=== PATIENT | female | born 1990 | race Caucasian/White ===

== ENCOUNTER 2017-03-27 22:30 | Outpatient (CLI) | payer BC, MEDICAID, SELFPAY ==
[2017-03-27 22:42] VITALS: BMI 32.8
[2017-03-27] MEDS: Betamethasone/Betamethasone 30 MG/5 ML Vial 12 MG IM (22:54)
[2017-03-27 23:05] VITALS: RESP 18
== END 2017-03-27 23:05 | disposition home or self-care (01) ==
PROVIDERS: Family Provider Obstetrics & Gynecology; PCP Obstetrics & Gynecology; Visit Provider Obstetrics & Gynecology
DX: O60.00 Preterm labor without delivery, unspecified trimester (principal)
CPT/HCPCS: 96372; 99218; G0378; J0702

== ENCOUNTER 2017-05-30 12:50 | Outpatient (CLI) | payer MEDICAID, SELFPAY ==
[2017-05-30 13:01] VITALS: BMI 34.4
[2017-05-30 13:40] LABS: Hematocrit 40.4 % (37-47); Hemoglobin 14.3 g/dl (12.0-15.0); Mean Corp Hgb Conc 35.4 g/gl (32-36); Mean Corpuscular Hgb 30.2 pg (27.0-32.0); Mean Corpuscular Volume 85.4 fL (81-99); Mean Platelet Vol. 13.1 fl (6.2-12.0); Platelet Count 199 K/mm3 (150-450); RBC Distribution Width CV 14.8 % (11.6-14.6); RBC Distribution Width SD 46.1 fl (35.1-43.9); Red Blood Count 4.73 M/mm3 (4.2-5.4); White Blood Count 13.2 K/mm3 (4.4-11.0)
[2017-05-30 13:43] LABS: Scan Indicated on CBC? Y/N NO
[2017-05-30] MEDS: 0.9% NaCl Peripheral Flush Adult/Peds IV (13:45)
[2017-05-30 13:50] LABS: Protein:Creat Ratio 739 mg/g CRE (0-200)
[2017-05-30] MEDS: Lactated Ringers 1,000 ML 100 ML IV (14:00)
[2017-05-30 14:05] LABS: International Normalized Ratio 0.9; Prothrombin Time (Protime)PT. 12.1 SECONDS (11.7-14.9)
[2017-05-30 14:06] LABS: Partial Thromboplast Time 29.9 Seconds (24.1-36.2)
[2017-05-30 14:23] LABS: AST(SGOT) 20 U/L (15-37); Alanine Aminotransfer ALT/SGPT 19 U/L (12-78); Creatinine, Serum 0.61 mg/dL (0.55-1.02); EST Glomerular Filtration Rate 124 mL/min (>60); Est Glom Filt Rate - Afr Amer 150 mL/min (>60); Estimated Creatinine Clearance 109.57 ml/min
[2017-05-30 14:52] LABS: Thyroid Stim Hormone (TSH) 0.71 uIU/mL (0.358-3.74)
[2017-05-30] MEDS: Betamethasone/Betamethasone 30 MG/5 ML Vial 12 MG IM (14:55)
[2017-05-30] MEDS: Acetaminophen 500 MG Tablet 1000 MG PO (16:12)
--- NOTE | 2017-05-30 16:16 | OB.TRI.HP_ITS ---
History of Present Illness - History of Present Illness Reason For Visit: r/o pre eclampsia - Medications Home Medications: Home Medications Medication Instructions Recorded Propylthiouracil 150 mg PO TID 01/10/17 [Propylthiouracil, PTU] Vits [Prenatabs FA] 1 tablet PO DAILY 03/26/17 - Allergies Allergies/Adverse Reactions: Allergies No Known Allergies Allergy (Verified 05/30/17 13:03) - Pertinent Past Medical History Pertinent Past Medical History: TRANSPORT NOTE This is a 26-year-old patient at 33+ weeks gestation with EDC of July 15, 2017 by a 7 week 1 day ultrasound who presents by squad with elevated blood pressures. Patient indicates her blood pressure upon squad arrival was in the 180s over 130s. Upon arrival here blood pressures were 160 over 90s. Since then her blood pressures been noted to be in the 140s over 90s. care has been remarkable for 2 prior C-sections one at 30 weeks and a second at 33 weeks. First was for rupture of membranes and second was for -induced hypertension at 33 weeks. Patient required bedrest for about 3 weeks with her last due to -induced hypertension. Patient denies any PIH symptoms except for an headache which is on and off. Patient's care is also remarkable for hyperthyroidism with treatment using PTU 3 times daily. Her first child also had a first chromosome duplication. Physical Exam General: Alert, Oriented x3, Cooperative, No apparent distress Cardiovascular: Regular rate, Regular Rhythm Abdomen: Soft, Non Tender, Non-Distended, No Hepato-splenomegaly Extremities:: No clubbing, No cyanosis, Other - DTRs 1+ no clonus Estimated gestational size: Appropriate for gestational size Cervix Dilation (cm): 0 Station: -2 Effacement (%): 50 NST - FHR Rate Baby A NST Reactive:: Yes - 2 decelerations to the 60s was noted just after arrival. Since then nonstress test has been reactive without decelerations noted. No uterine contractions are visualized on monitor. Impression/Plan Severe PIH at 33 weeks gestation. PIH labs are essentially normal except for an elevated urine protein to creatinine ratio and anuria. Uric acid levels also elevated at 7.0. River functions are normal and platelet count is normal. On examination reflexes are normal to slightly brisk. Headaches come and go. Celestone has been started. I reviewed the case with maternal medicine ( Dr. Guzmán) and will transfer to [facility]. Will start magnesium sulfate before transport.
[2017-05-30] MEDS: Magnesium Sulfate 20 GM/500 ML BAG IV (17:10)
== END 2017-05-30 18:00 | disposition home or self-care (01) ==
LOC: WPOUT 12:57 → WP 13:00
PROVIDERS: Obstetrics & Gynecology; Visit Provider Obstetrics & Gynecology
DX: O14.13 Severe pre-eclampsia, third trimester (principal); O76 Abnormality in fetal heart rate and rhythm complicating labor and delivery; O99.283 Endocrine, nutritional and metabolic diseases complicating pregnancy, third trimester; E05.90 Thyrotoxicosis, unspecified without thyrotoxic crisis or storm; O26.833 Pregnancy related renal disease, third trimester; R34 Anuria and oliguria; O09.213 Supervision of pregnancy with history of pre-term labor, third trimester; Z3A.33 33 weeks gestation of pregnancy
CPT/HCPCS: 96361 ×4; 96365; 59025; 59050; 82565; 82570; 84156; 84443; 84450; 84460; 84550; 85027; 85610; 85730; 96372; 99218; J7120; A4216; G0378; J0702

== ENCOUNTER 2017-11-30 19:30 | Emergency (ER) | payer MEDICAID, SELFPAY ==
--- NOTE | 2017-11-30 19:30 | DT_ITS ---
This patient was seen during an EMR downtime November 24, 2017 - December 01, 2017. This patient may have a combination of paper and electronic documentation or all paper documentation. All documentation is viewable within the e-chart portion of [facility] for each patient visit.
[2017-12-02 10:17] LABS: Absolute Lymphocyte Count 1.27 X10^3/ul (0.83-4.51); Absolute Neutrophil Count 4.8 X10^3/uL (2.0-7.7); Basophil% 0.2 % (0-1); Eosinophils% 1.4 % (0-5); Hematocrit 40.1 % (37-47); Hemoglobin 13.3 g/dl (12.0-15.0); Lymphocyte # 1.27 X10^3/ul (4.0); Lymphocyte % 19.2 % (19-41); Mean Corp Hgb Conc 33.2 g/gl (32-36); Mean Corpuscular Hgb 26.5 pg (27.0-32.0); Mean Platelet Vol. 10.9 fl (6.2-12.0); Monocyte# 0.42 X10^3/uL; Monocyte% 6.3 % (0-10); Neutrophil # 4.83 X10^3/uL (2.7-7.7); Neutrophil % 72.7 % (47-70); POSITIVE COUNT NO; POSITIVE DIFFERENTIAL NO; POSITIVE MORPHOLOGY NO; Platelet Count 199 K/mm3 (150-450); RBC Distribution Width CV 14.3 % (11.6-14.6); RBC Distribution Width SD 41.5 fl (35.1-43.9); Red Blood Count 5.01 M/mm3 (4.2-5.4); White Blood Count 6.6 K/mm3 (4.4-11.0)
[2017-12-02 10:18] LABS: Basophil# 0.01 X10^3/uL; Eosinophil# 0.09 X10^3/uL
[2017-12-02 11:25] LABS: Pregnancy, Serum, hCG Quali. NEGATIVE Negative (0-9 Nonpreg)
[2017-12-02 11:26] LABS: Anion Gap 8 (5-15); BUN 5 mg/dL (7-18); BUN/Creat Ratio 8.3 RATIO (10-20); Calcium,Total 8.4 mg/dL (8.5-10.1); Chloride 106 mmol/L (98-107); EST Glomerular Filtration Rate 127 mL/min (>60); Est Glom Filt Rate - Afr Amer 154 mL/min (>60); Glucose 81 mg/dL (74-106); Lipase 184 U/L (73-393); Potassium 3.5 mmol/L (3.5-5.1); Sodium Level 139 mmol/L (136-145)
[2017-12-02 11:57] LABS: AST(SGOT) 19 U/L (15-37); Alanine Aminotransfer ALT/SGPT 25 U/L (13-56); Albumin, Serum 3.7 g/dL (3.2-5.0); Alkaline Phosphatase 97 U/L (45-117); Bilirubin, Direct 0.07 mg/dL (0.00-0.30); Globulin 3.9 g/dL (2.2-4.2); Protein, Total 7.6 g/dL (6.4-8.2)
== END 2017-11-30 22:05 | disposition home or self-care (01) ==
PROVIDERS: Emergency Provider Emergency Medicine
DX: R19.7 Diarrhea, unspecified (principal); R10.9 Unspecified abdominal pain; Z87.891 Personal history of nicotine dependence
CPT/HCPCS: 80048; 80076; 83690; 84703; 85025; 87493; 96374; 96375; 99284; A4216; J2405

== ENCOUNTER → 2018-06-04 13:59 | Outpatient (CLI) | payer MEDICAID, SELFPAY ==
[2018-06-04 13:28] VITALS: BMI 36.6
[2018-06-04 16:31] LABS: Free T3 5.3 pg/mL (2.18-3.98); T4 Free Direct 1.61 ng/dL (0.76-1.46); Thyroid Stim Hormone (TSH) < 0.01 uIU/mL (0.358-3.74)
[2018-06-08 20:07] LABS: Thyroid Peroxidase AB 369 IU/mL (0-34)
[2018-06-09 10:43] LABS: Thyroglobulin Antibody 486.4 IU/mL (0.0-0.9)
--- OUTSIDE RECORDS SUMMARY | 2018-07-21 10:42 | XMS RPT_ITS ---
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 therapy completed Breast Pump Device 1 De* 0 06/02/2017 02/25/2018 Class: Print RX Sig: Use as directed Disc: Course of therapy completed oxyCODONE-acetaminophen (PERCOCET) 5* 30 t* 0 06/02/2017 02/25/2018 Class: Print RX Route: ORAL Sig: Take 1 tablet by mouth every 4 hours as needed for Pain. Disc: Course of therapy completed ibuprofen (MOTRIN) 600 mg tablet 60 t* 0 06/02/2017 02/25/2018 Class: Print RX Route: ORAL Sig: Take 1 tablet by mouth every 6 hours as needed. Disc: Course of therapy completed docusate sodium (COLACE) 100 mg caps* 60 c* 1 06/02/2017 02/25/2018 Class: Print RX Route: ORAL Sig: Take 2 capsules by mouth twice daily as needed for Constipation. Disc: Course of therapy completed Follow-up and Disposition History Recorded Encounter Status:Closed by CARLITO DRISCOLL MD on 02/25/18 DOWNTIME REPORT Observed: 12/10/2017 Status: F Source: [place] 3:01 PM [facility] REPOSITORY [facility] Medical Records Department [address] [place] [address] Downtime Report MR#: [id number] Acct: [id number] Name: NATALY BROOKE Rep #: [id number] : 1990 27 From: Manuel Vogt MD PCP: Care Physician, No Primary Status: [facility] This patient was seen during an EMR downtime November 24, 2017 - December 01, 2017. This patient may have a combination of paper and electronic documentation or all paper documentation. All documentation is viewable within the e-chart portion of [employer] for each patient visit. Observed: 11/30/2017 Status: F Source: [place] CDIFF (MOLECULAR) 7:57 PM [facility] REPOSITORY RESULT(S) PREVIOUSLY REPORTED ON MANUAL REQUISITION DURING DOWNTIME. Cdiff-Molecular Normal Reference Range = Negative C. Diff DNA Negative- No toxigenic C. Diff DNA Detected NAAT METHOD Testing was performed using nucleic acid amplification Performed By: #### M100.6796 #### [facility] [address] [place], [address] ,SERUM,HCG QUALI. Collected: Status: F Source: [place] 11/30/2017 7:45 PM [facility] REPOSITORY Order Comment: RESULT(S) PREVIOUSLY REPORTED ON MANUAL REQUISITION DURING DOWNTIME. TYPE CODE TESTS RESULT OUT OF REFERENCE UNITS RANGE LAB L700.6700 =>Qualitative mIU/mL Normal HCG Qual < 1 triggr LAB L700.7000 0-9 Nonpreg Negative Normal HCGSQUAL NEGATIVE Performed By: #### L700.6800 #### [facility] [address] [place], [place], [address] BASIC METABOLIC Collected: 11/30/2017 Status: F Source: [place] PROFILE (BMP) 7:45 PM [facility] REPOSITORY Order Comment: RESULT(S) PREVIOUSLY REPORTED ON MANUAL REQUISITION DURING DOWNTIME. TYPE CODE TESTS RESULT OUT OF RANGE REFERENCE UNITS LAB L501.0100 74-106 mg/dL Normal GLU 81 Result Comment: Please note revised GLUCOSE reference range effective 2017. LAB L501.1000 7-18 mg/dL Low BUN 5 LAB L501.1100 0.55-1.02 mg/dL Normal CREAT,SERUM 0.60 Result Comment: The validity of the calculated GFR AND GFRAA in patients over 70 years has not been determined. Clinical correlation is essential. LAB L501.1110 >60 mL/min Normal EST GFR 127 LAB L501.1115 >60 mL/min Normal EST GFR - AA 154 LAB L501.1300 10-20 RATIO Low BUN/CRE 8.3 LAB L501.2200 8.5-10.1 mg/dL Low CA 8.4 LAB L501.5300 136-145 mmol/L Normal NA 139 LAB L501.5600 3.5-5.1 mmol/L Normal K 3.5 LAB L501.5900 98-107 mmol/L Normal CL 106 LAB L501.6100 21.0-32.0 mmol/L Normal CO2 25.0 LAB L501.6200 5-15 Normal GAP 8 Performed By: #### L500.2500, L501.2450, L500.3400 #### [facility] [address] [place], [address] LIPASE Collected: 11/30/2017 Status: F Source: NED 7:45 PM [facility] REPOSITORY Order Comment: RESULT(S) PREVIOUSLY REPORTED ON MANUAL REQUISITION DURING DOWNTIME. TYPE CODE TESTS RESULT OUT OF RANGE REFERENCE UNITS LAB L501.2450 73-393 U/L Normal LIPASE 184 Performed By: #### L500.2500, L501.2450, L500.3400 #### [facility] [address] [place], [address] LIVER PROFILE Collected: 11/30/2017 Status: F Source: [place] 7:45 PM [facility] REPOSITORY Order Comment: RESULT(S) PREVIOUSLY REPORTED ON MANUAL REQUISITION DURING DOWNTIME. TYPE CODE TESTS RESULT OUT OF RANGE REFERENCE UNITS LAB L501.1500 6.4-8.2 g/dL Normal T PROT 7.6 LAB L501.1800 3.2-5.0 g/dL Normal ALB 3.7 LAB L501.1950 2.2-4.2 g/dL Normal GLOB 3.9 LAB L501.4100 15-37 U/L Normal AST 19 LAB L501.4305 45-117 U/L Normal ALK P 97 LAB L501.4405 13-56 U/L Normal ALT 25 LAB L501.4600 0.20-1.00 mg/dL Normal T BILI 0.30 LAB L501.4700 0.00-0.30 mg/dL Normal D BILI 0.07 Performed By: #### L500.2500, L501.2450, L500.3400 #### [facility] [address] [place], [address] CBC W/DIFF, AUTOMATED Collected: 11/30/2017 Status: F Source: [place] 12:00 AM [facility] REPOSITORY Order Comment: RESULT(S) PREVIOUSLY REPORTED ON MANUAL REQUISITION DURING DOWNTIME. TYPE CODE TESTS RESULT OUT OF RANGE REFERENCE UNITS LAB L100.1000 4.4-11.0 K/mm3 Normal WBC 6.6 LAB L100.1200 4.2-5.4 M/mm3 Normal RBC 5.01 LAB L100.1300 12.0-15.0 g/dl Normal HGB 13.3 LAB L100.1400 37-47 % Normal HCT 40.1 LAB L100.1500 81-99 fL Low MCV 80.0 LAB L100.1600 27.0-32.0 pg Low MCH 26.5 LAB L100.1700 32-36 g/gl Normal MCHC 33.2 LAB L100.1810 11.6-14.6 % Normal RDW CV 14.3 LAB L100.1820 35.1-43.9 fl Normal RDW SD 41.5 LAB L100.1900 150-450 K/mm3 Normal PLT 199 LAB L100.2000 6.2-12.0 fl Normal MPV 10.9 LAB L100.2100 47-70 % High NEUT% 72.7 LAB L100.2200 19-41 % Normal LY% 19.2 LAB L100.2300 0-10 % Normal MONO% 6.3 LAB L100.2400 0-5 % Normal EO% 1.4 LAB L100.2500 0-1 % Normal BASO% 0.2 LAB L100.2550 0.0-0.9 % Normal IM GRAN % 0.200 Result Comment: IG% - Immature Granulocytes (promyelocytes, myelocytes and metamyelocytes) > 1% indicates that a LEFT SHIFT is Present. LAB L100.2620 2.0-7.7 X10 3/uL Normal Absolute Neut 4.8 LAB L100.2720 0.83-4.51 X10 3/ul Normal Absolute Lymph 1.27 Performed By: #### L100.0100 #### [facility] [place], [address] ALLERGIES ALLERGIES DATE TYPE / CODE NAME / CODE REACTION SEVERITY SOURCE 06/04/2018 Drug No Known Unknown [facility] Allergy/416 Allergies/C15503 Hospital 390946(SNOM 0388(RXNORM) Repository ED CT) Drug NO KNOWN [facility] Class/08823 ALLERGIES [place] 1003(SNOMED Repository CT) ENCOUNTERS ENCOUNTERS ADMIT/DISCHARGE ACCOUNT ADMITTING ENCOUNTER LOCATION SOURCE NUMBER CLASS 06/04/2018 [id number] Ambulatory [facility] ing:LAB Repository 06/04/2018/06/04/20 [id number] Ambulatory B[place]:[place] [address] [facility] Repository 03/02/2018/03/03/20 [id number] Ambulatory [address] Repository 02/25/2018/02/26/20 [id number] Ambulatory [address] Repository 02/25/2018/02/27/20 [id number] Ambulatory [address] Repository 11/30/2017/12/01/19 [id number] Emergency [address] ing:ED Repository PAYERS PAYERS ENCOUNTER GUARANTOR PAYER SUBSCRIBER SOURCE 06/04/2018 NATALY L Primary NATALY L Ned [id number] Insurance:CARESOURCEP TILTONDOB: Community [place] olicy [place]: [id number] [id number] Repository [address]Mzu: [phone]) Date:2018-06-04P O [phone] () [address]ATTN: [place] [address]OU: 06/04/2018 Secondary NOT GIVENUNK [place] Insurance:SELF PAY [facility] Number: Effective Repository Date:2018-06-04 06/04/2018 NATALY Primary NATALY Marino [id number] Insurance:CARESOURCEP TILTONDOB: Community [employer] [employer] olicy Number: [id number], [place] [id number] Repository [address]Dqg: [phone]) Date:2018-02-18P O [phone] () [address]ATTN: [place] [address]CU: 06/04/2018 Secondary NOT GIVENUNK Melbeta Insurance:SELF PAY [facility] Number: Effective Repository Date:2018-06-04 11/30/2017 Nataly Primary Nataly Marino [id number] Insurance:CARESOURCEP TiltonDOB: [facility] olic Number: [id number] [id number] Repository [address]Tdi: [phone]) Date:2017-11-30P O [phone] () [address]ATTN: [place] [address]JU: 11/30/2017 Secondary NOT GIVENUNK Ned Insurance:SELF PAY [facility] Number: Effective Repository Date:2017-11-30
== END ==
PROVIDERS: Referring Provider Nurse Practitioner; Visit Provider Nurse Practitioner
DX: E05.90 Thyrotoxicosis, unspecified without thyrotoxic crisis or storm (principal)
CPT/HCPCS: 36415; 84439; 84443; 84481; 86376; 86800

== ENCOUNTER → 2018-08-12 13:55 | Outpatient (CLI) | payer MEDICAID, SELFPAY ==
[2018-06-04 13:28] VITALS: BMI 36.6
[2018-08-20 13:24] LABS: HPV Reflexed? NOT INDICATED
== END ==
PROVIDERS: Visit Provider Obstetrics & Gynecology
DX: Z12.4 Encounter for screening for malignant neoplasm of cervix (principal)
CPT/HCPCS: 88175; G0145

== ENCOUNTER 2018-09-19 15:35 | Emergency (ER) | payer MEDICAID, SELFPAY ==
[2018-06-04 13:28] VITALS: BMI 36.6
[2018-09-19 15:36] VITALS: BP 175/98; PULSE 114; RESP 18; TEMP 36.6; O2SAT 96; BMI 36.6
--- NOTE | 2018-09-19 15:40 | RAD_ITS ---
STUDY: X-RAY - LEFT WRIST REASON FOR EXAM: Female, 28 years old. Fall, left wrist pain TECHNIQUE: 3 view(s) of the wrist were obtained. COMPARISON: None. FINDINGS: Normal visualized distal radius and ulna. Normal radiocarpal articulation. Normal distal radioulnar articulation. Normal carpal bones. Normal carpal articulations. Normal carpometacarpal articulation of the thumb. Normal second through fifth carpometacarpal articulations. Normal visualized metacarpal bones. The soft tissue structures are unremarkable. RAD/Wrist min 3 Views IMPRESSION: No fracture or malalignment. Electronically Signed: Salomon Dominguez MD at 16:16 EDT , Service support ,
--- NOTE | 2018-09-19 15:43 | RAD_ITS ---
STUDY: X-RAY - LEFT ELBOW REASON FOR EXAM: Female, 28 years old. Left elbow and wrist pain after falling TECHNIQUE: 3 view(s) of the elbow. COMPARISON: None. FINDINGS: Nondisplaced radial neck fracture identified with indistinct trabecular margins. Joint effusion is noted. Normal radiocapitellar and ulnotrochlear articulations. The soft tissue structures are otherwise unremarkable. RAD/Elbow min 3 Views IMPRESSION: Nondisplaced radial neck fracture. Joint effusion. Electronically Signed: Salomon Dominguez MD at 16:16 EDT , Service support ,
[2018-09-19] MEDS: Acetaminophen 500 MG Tablet 1000 MG PO (18:11)
--- NOTE | 2018-09-19 18:21 | ED.DCSUM_ITS ---
- ER Visit Summary Date of Service: 09/19/18 Chief Complaint: Fall with left arm injury History of Present Illness: The patient is a 28 F who suffered a mechanical fall last night injuring her left arm. She complains of pain to the left elbow and wrist. She denies paresthesias. She is right-hand dominant. She denies any other injury from the fall. Physical Examination: Blood pressure is 175/98 and heart rate 114. Patient sitting upright in bed. Head neck examination reveals no external sign of trauma. Heart is regular rate and rhythm. Lung sounds are clear. Abdomen is soft nontender. Left upper extremity examination was tenderness of the left elbow with decreased range of motion. She has strong distal pulses. There is minimal tenderness at the shoulder and wrist with no deformity. Test Results: Left wrist x-ray shows no fracture. Left elbow x-ray shows a nondisplaced radial neck fracture. Joint effusion is present. Emergency Department Course and Treatment: Patient requested only Tylenol for pa in at this time. She is placed in a long-arm plus sugar tong Ortho-Glass splint. Following splint application she has good cap refill distally and can wiggle fingers. She will be referred to Dr. Coleman, on-call for orthopedics. She will be given a prescription for [place] that she can fill if she needs something stronger for pain. Treatment Plan: [] Disposition: Discharge Impression: Left radial neck fracture This note was generated with [employer] dictation software. It may contain incorrect words, spelling, and punctuation that were not noted in review of the chart prior to signing ED Disposition - Plan for ED Patient: Referrals: Care Physician,No Primary [Primary Care Provider] -
--- NOTE | 2018-09-19 18:23 | DCINST.ED_ITS ---
ED Disposition - Plan for ED Patient: Disposition: Home or Assisted Living Instructions: ED Fx Elbow Prescriptions: Hydrocodone Bitart/Apap 5-325 [[place] 5MG-325MG] 1 tablet PO Q6H PRN PRN 3 Days #10 tablet PRN Reason: Pain Referrals: Hubert Coleman DO [STAFF PHYSICIAN] - 5-7 Days
[2018-09-19 18:24] VITALS: BP 146/91; PULSE 89; RESP 18; O2SAT 100
== END 2018-09-19 18:51 | disposition home or self-care (01) ==
PROVIDERS: Emergency Provider Emergency Medicine
DX: S52.135A Nondisplaced fracture of neck of left radius, initial encounter for closed fracture (principal); W01.0XXA Fall on same level from slipping, tripping and stumbling without subsequent striking against object, initial encounter
CPT/HCPCS: 29126; 73080; 73110; 99282

== ENCOUNTER 2019-12-15 03:42 | Emergency (ER) | payer MEDICAID, SELFPAY ==
[2019-12-15 03:43] VITALS: BP 176/111; PULSE 121; RESP 19; TEMP 37.2; O2SAT 96; BMI 37.0
--- NOTE | 2019-12-15 04:18 | ED.DCSUM_ITS ---
History of Present Illness Chief Complaint: Dental Narrative: Patient presenting for evaluation secondary to dental pain. Patient reports that she has a cracked wisdom tooth in her left mandible, and she has been dealing with intermittent pain secondary to this. Patient states that she had an appointment for removal of this, but it was canceled secondary to coronavirus. She has been dealing with intermittent paroxysms of pain, but tonight she had an onset of severe pain that has been unrelenting to Orajel and Tylenol administration. Patient denies any fevers. She denies any history of immunosuppression. She denies any difficulty swallowing or difficulty breathing or any problems with opening closing her mouth. Pain is moderate to severe. Review of systems otherwise negative. Past Medical History - Allergies and Home Meds Allergies/Adverse Reactions: Allergies No Known Allergies Allergy (Verified 12/15/19 03:47) Primary Care Physician: Care Physician,No Primary [Primary Care Provider] - Prior records reviewed: Yes Past Medical History: None Lives: Spouse/ Significant Other Smoking Status: Current every day smoker Alcohol: None Drugs: None Review of Systems All systems negative except as indicated General: Denies: Chills, Fever, Sweats Eyes: Denies: Visual changes - bilaterally, Diplopia ENT: Reports: - - Dental pain Cardiovascular: Denies: Chest pain, Palpitations Respiratory: Denies: Dyspnea, Cough, Dyspnea on exertion Gastrointestinal: Denies: Abdominal pain, Nausea, Vomiting, Diarrhea, Melena, Hematochezia Genitourinary: Denies: Dysuria, Hematuria, Frequency Musculoskeletal: Denies: Back pain, Extremity Pain Skin: Denies: Rash, Wounds Neurological: Denies: Headache, Weakness, Numbness Physical Exam Vital Signs/Narrative: Vital Signs Temp Pulse Resp BP Pulse Ox 12/15/19 03:43 98.9 F 121 H 19 H 176/111 H 96 Inital Vital Signs reviewed: Yes General: Well nourished, Well developed Head: Normocephalic, Atraumatic ENT: Moist mucous membranes, No rhinorrhea, TM's clear Mouth/Throat: Focal dental decay - Patient has good dentition, but has focal dental decay and significant loss of enamel of her left mandibular third molar. There is no evidence of focal abscess. No trismus. Soft sublingual space. Normal posterior oropharynx. Neck: Supple, No lymphadenopathy, Nontender, No JVD Cardiovascular: Regular rhythm, Tachycardia Respiratory: No distress, CTA bilaterally, Chest nontender Abdomen: Soft, Nontender, Nondistended, Normal bowel sounds Extremities: Nontender, No edema Skin: Normal color, No rash Neurological: Alert, Oriented x3, Cranial nerves II-XII grossly intact, Normal Strength, Normal Sensation Psychological: Normal affect Diagnostic/Tx/Re-eval - Medical Decision Making Regional and Local Dental Anesthesia: Marcaine, Left Inferior Alveolar Nerve Block Patient presented secondary to dental pain. She has significant decay of her wisdom tooth on the left and pain secondary to it. A inferior alveolar block was performed on the left as noted in the procedure note. Patient tolerated this well and had significant improvement of her pain. Upon arrival the patient was in moderate distress secondary to her pain and was hypertensive and tachycardic. This did improve after she was blocked, and I do not feel that work-up for sepsis is indicated. Likewise the patient does not have any evidence of abscess, Santo's angina, or significant etiology that would require imaging or lab work. Patient will be discharged with a course of penicillin and [place]. She was instructed that she needs to follow-up with a dentist. Procedure note: Inferior alveolar block. Patient was verbally consented for a inferior alveolar block. A control needle with a 27-gauge needle and Marcaine was utilized. Landmarks were identified, and Marcaine was infiltrated around the inferior alveolar nerve. Patient tolerated this well and did obtain analgesia from this. ED Disposition - Plan for ED Patient: Disposition: Home or Assisted Living Diagnosis: Acute pulpitis Instructions: ED Tooth Pain Prescriptions: Hydrocodone Bitart/Apap 5-325 [[place] 5MG-325MG] 1 tab PO Q6H PRN PRN 3 Days #12 tab PRN Reason: Pain Prescription Printed Penicillin V Potassium 500 mg PO 4X/DAY #40 tab Prescription Printed Additional Instructions: Follow-up as soon as possible with a dentist
[2019-12-15] MEDS: Penicillin Vk 250 MG Tablet 500 MG PO (04:27)
[2019-12-15 04:29] VITALS: BP 156/89; PULSE 90; RESP 16; O2SAT 97
== END 2019-12-15 04:29 | disposition home or self-care (01) ==
PROVIDERS: Emergency Provider Emergency Medicine
DX: K04.01 Reversible pulpitis (principal); K02.9 Dental caries, unspecified; F17.200 Nicotine dependence, unspecified, uncomplicated
CPT/HCPCS: 64400; 64999; 99282

== ENCOUNTER 2024-07-23 17:04 | Outpatient (CLI) | payer MEDICAID, SELFPAY ==
[2024-07-26 13:07] LABS: QNTFERON TB Mitogen Value > 10.00 IU/mL (.); QNTFERON TB Nil Value 0.01 IU/mL (.); QNTFERON TB1+ Ag Value 0.02 IU/mL (.); QNTFERON TB2+ Ag Value 0 IU/mL (.); QNTIFERON TB Positive Criteria Negative (Negative)
== END 2024-07-23 23:59 | disposition home or self-care (01) ==
DX: Z11.1 Encounter for screening for respiratory tuberculosis (principal)
CPT/HCPCS: 36415; 86480